=== PATIENT | male | born 1950 | race Hispanic/Latino ===

== ENCOUNTER → 2020-11-27 | Outpatient (CLI) | payer MEDICARE ==
[2020-11-27 12:04] LABS: CREATININE 1.3 mg/dL (0.5-1.5); POTASSIUM 3.9 mmol/L (3.5-5.1)
[2020-11-27 12:05] LABS: HEMOGLOBIN A1C 6.2 % (4.0-6.0)
== END | disposition home or self-care (01) ==
LOC: LAB 09:42
PROVIDERS: ATTEND Family Medicine
DX: R79.89 Other specified abnormal findings of blood chemistry (principal); I10 Essential (primary) hypertension
CPT/HCPCS: 36415; 80048; 83036; 84153; 84154; 84403; 85018